=== PATIENT | male | born 1960 | race Caucasian/White ===

== ENCOUNTER 2021-09-16 13:13 | Observation (INO) ==
[2021-09-16] MEDS ORDERED: HYDROmorphone INJ 0.5 MG/0.5 ML SYR IV STA ×2 (14:09→16:04)
[2021-09-16] MEDS ORDERED: ONDANSETRON INJ 2 MG/ML 2 ML VIAL IV STA (14:09)
--- NOTE | 2021-09-16 14:10 | Emergency Department Note ---
History of Present Illness General Chief complaint: Leg Injury/Pain Stated complaint: LEG PAIN Time Seen by Provider: 09/16/21 14:00 Source: patient History of Present Illness Provider complaint: Left-sided back pain Onset (ago): day(s) Location: back Radiation: extremity (Left leg) Pain Consistency: + constant Maximum Pain Intensity: 9 Quality: + sharp Exacerbated By: + movement Associated symptoms: no chest pain, no cough, no fever/chills, no malaise, no nausea/vomiting or no shortness of breath This is a 60-year-old male who presents with left lower back pain rating down to his left leg. It has been going on for 3 days. It started after he fell. He rates it a 9 out of 10 in severity. It is worse when he tries to move. He is not sure if the leg is weak but he is having trouble moving it because of the pain. He denies any numbness to his legs or any saddle anesthesia. He has had no fecal or urinary incontinence. He denies any fever, cough or cold symptoms, chest pain, shortness of breath, abdominal pain, diarrhea or urinary symptoms. He did fall yesterday and was seen here. He did not fall today. Home Medications Medication Instructions Recorded Confirmed Type apixaban 2.5 mg tablet (Eliquis) 2.5 mg PO BID #180 tab 07/28/21 09/16/21 Rx ferrous sulfate 325 mg (65 mg 325 mg PO DAILY #90 tab 07/28/21 09/16/21 Rx iron) tablet (iron) gabapentin 300 mg capsule 300 mg PO DAILY #90 cap 07/28/21 09/16/21 Rx melatonin 3 mg tablet 6 mg PO HS PRN #30 tab 07/28/21 09/16/21 Rx midodrine 5 mg tablet 5 mg PO TID #270 tab 07/28/21 09/16/21 Rx pantoprazole 40 mg tablet,delayed 40 mg PO DAILY #90 tab 07/28/21 09/16/21 Rx release acetaminophen 500 mg tablet 1,000 mg PO DIRECTED PRN 09/07/21 09/16/21 History (Tylenol Extra Strength) ibuprofen 200 mg tablet 400 - 600 mg PO DIRECTED PRN 09/07/21 09/16/21 History triamcinolone acetonide 0.1 % 1 applic TOPICAL DIRECTED PRN 09/07/21 09/16/21 History lotion lidocaine 4 % topical patch 1 patch TOPICAL DAILY #30 ea 09/14/21 09/16/21 Rx (Aspercreme (lidocaine)) oxycodone 5 mg tablet 5 mg PO Q6H PRN #10 tab 09/16/21 Rx Allergies Allergy/AdvReac Type Severity Reaction Status Date / Time No Known Allergies Allergy Verified 09/16/21 17:03 Past Med/Surg History Medical History Afib Anoxic brain damage Cardiac arrest ESRD (end stage renal disease) on dialysis History of substance abuse Iron deficiency anemia Osteoarthritis Primary hypertension Psoriasis Surgical History S/P inguinal hernia repair Family History Brother Stroke Other Hypertension Denies family history of Ovarian cancer Prostate cancer Myocardial infarction Breast cancer Colorectal cancer Social History Smoking Status: Former smoker Tobacco Type: Cigarettes Number of Years Since Quit: 15; Second Hand Exposure: Yes; Hx Alcohol Use: Yes (quit 20 years) Hx Substance Use: Yes Non-Prescribed Medications: Crack / Cocaine and Marijuana Preferred Language: Cambodian marital status: Single current occupational status: disabled Feels Safe at Home: Yes Review of Systems See HPI for pertinent positives & negatives. and A total of 10 systems reviewed and were otherwise negative Physical Exam Vital Signs Vital Signs - 24 hr 09/16/21 13:21 09/16/21 13:29 09/16/21 13:30 Temperature 37 C Temperature Source Oral Pulse Rate 86 80 79 Pulse Rate [Right Finger] Pulse Rate from SpO2 Sensor 85 84 Respiratory Rate 22 18 Blood Pressure 130/87 Blood Pressure [Right Arm] Blood Pressure Mean 101 Blood Pressure Mean [Right Arm] Pulse Oximetry 97 98 97 Oxygen Delivery Method Room Air Sepsis Recent Fever Within 48 Hours No Sepsis New/Unexplained Change in Mental Status No Sepsis Action Taken by Nursing No Action Required 09/16/21 13:52 09/16/21 14:00 09/16/21 14:30 Temperature Temperature Source Pulse Rate 83 Pulse Rate [Right Finger] Pulse Rate from SpO2 Sensor 83 73 Respiratory Rate 24 14 Blood Pressure Blood Pressure [Right Arm] Blood Pressure Mean Blood Pressure Mean [Right Arm] Pulse Oximetry 98 96 92 Oxygen Delivery Method Room Air Sepsis Recent Fever Within 48 Hours Sepsis New/Unexplained Change in Mental Status Sepsis Action Taken by Nursing 09/16/21 15:25 09/16/21 15:26 09/16/21 15:28 Temperature Temperature Source Pulse Rate Pulse Rate [Right Finger] 94 H Pulse Rate from SpO2 Sensor 69 Respiratory Rate 16 Blood Pressure 125/79 Blood Pressure [Right Arm] 125/79 Blood Pressure Mean 94 Blood Pressure Mean [Right Arm] 94 Pulse Oximetry 96 96 92 Oxygen Delivery Method Room Air Sepsis Recent Fever Within 48 Hours Sepsis New/Unexplained Change in Mental Status Sepsis Action Taken by Nursing 09/16/21 15:30 09/16/21 16:27 Temperature Temperature Source Pulse Rate Pulse Rate [Right Finger] 76 Pulse Rate from SpO2 Sensor 67 Respiratory Rate 18 Blood Pressure Blood Pressure [Right Arm] 107/75 Blood Pressure Mean Blood Pressure Mean [Right Arm] 85 Pulse Oximetry 96 92 Oxygen Delivery Method Room Air Sepsis Recent Fever Within 48 Hours Sepsis New/Unexplained Change in Mental Status Sepsis Action Taken by Nursing Constitutional: Vital signs reviewed. Eyes: Pupils are equal round reactive to light. Conjunctiva are noninjected. ENT: Pharynx is clear without erythema or exudate. Mucous membranes are moist. Neck supple without meningeal signs. Respiratory: Clear to auscultation bilaterally. Breath sounds are equal bilaterally. Cardiovascular: Regular rate and rhythm. No rubs or gallops. GI: Soft, nondistended and nontender. Bowel sounds are present. Musculoskeletal: No peripheral edema. No lower extremity tenderness. Integumentary: No cyanosis. or jaundice. Neurological: The patient is awake and alert. Sensation is intact throughout the lower extremities. Motor strength is 5 out of 5 in the right side. It is 4-5 in the left proximal hip but 5 out of 5 in the knee and ankle. Psychiatric: Normal affect. Not anxious appearing. Course Administered Medications Discontinued Medications Hydromorphone HCl (Hydromorphone Inj 0.5 Mg/0.5 Ml Syr) 0.5 mg IV NOW STA Stop: 09/16/21 14:10 Last Admin: 09/16/21 14:19 Dose: 0.5 mg Documented by: [id number] Hydromorphone HCl (Hydromorphone Inj 0.5 Mg/0.5 Ml Syr) 0.25 mg IV NOW STA Stop: 09/16/21 16:05 Last Admin: 09/16/21 16:24 Dose: 0.25 mg Documented by: [id number] Ondansetron HCl (Ondansetron Inj 2 Mg/Ml 2 Ml Vial) 4 mg IV NOW STA Stop: 09/16/21 14:10 Last Admin: 09/16/21 14:19 Dose: 4 mg Documented by: [id number] Medical Decision Making Differential Diagnosis Lumbar radiculopathy, lumbar disc disease, compression fracture, cauda equina syndrome, spinal mass Medical Records Attestation: I reviewed the patient's medical records. I did perform a limited focused review of portions of the patient's old chart on the electronic medical record. The patient was seen here on September 07, and for a fall. He had a CT of the lumbar spine September 13 which showed the following:Degenerative disc and degenerative facet joint disease with bulging annuli present. There is evidence for central canal and bilateral foraminal stenosis at L4-5. Home Medications Current Medication List: was personally reviewed by me Laboratory Data Attestation: I reviewed the patient's lab results. Result diagrams: 09/16/21 13:55 09/16/21 13:55 Lab Results 09/16/21 09/16/21 09/16/21 Range/Units 13:55 13:55 17:00 WBC 9.05 (4.8-10.8) K/uL RBC 3.27 L (4.7-6.1) M/uL Hgb 9.7 L (14.0-18.0) g/dL Hct 30.3 L (42-52) % MCV 92.7 (80-100) fL MCH 29.7 (25-34) pg MCHC 32.0 (32-36) g/dL RDW Std Deviation 58.5 H (36.4-46.3) fL RDW Coeff of Robert 17.0 H (11.5-14.5) % Plt Count 281 (130-400) K/uL MPV 9.3 (7.4-10.4) fL Immature Gran % (Auto) 0.4 % Neut % (Auto) 78.1 % Lymph % (Auto) 10.1 % [place] % (Auto) 9.0 % Eos % (Auto) 2.1 % Baso % (Auto) 0.3 % Neut # (Auto) 7.07 H (1.4-6.5) K/uL Lymph # (Auto) 0.91 L (1.2-3.4) K/uL [place] # (Auto) 0.81 H (0.11-0.59) K/uL Eos # (Auto) 0.19 (0-0.5) K/uL Baso # (Auto) 0.03 (0-0.2) K/uL Immature Gran # (Auto) 0.04 H (0.00-0.02) K/uL Sodium 137 (136-145) mmol/L Potassium 4.4 (3.5-5.1) mmol/L Chloride 102 (98-107) mmol/L Carbon Dioxide 24 (21-32) mmol/L Anion Gap 11 (3-11) BUN 70 H (6-23) mg/dl Creatinine 3.84 H (0.6-1.4) mg/dl Est Cr Clr Drug Dosing 23.1 ml/min Est GFR ( Amer) 18.6 ml/min Est GFR (Non-Af Amer) 16.0 ml/min BUN/Creatinine Ratio 18.2 (10-20) Glucose 100 H (70-99(Fasting)) mg/dl Calcium 8.9 (8.5-10.1) mg/dl Total Bilirubin 0.5 (0.2-1.0) mg/dl AST 12 L (13-39) U/L ALT 10 (7-52) U/L Alkaline Phosphatase 112 H (34-104) U/L Total Protein 6.8 (6.0-8.3) gm/dl Albumin 4.0 (3.4-5.0) gm/dl Globulin 2.8 (2.5-4.0) gm/dl Albumin/Globulin Ratio 1.4 (0.9-2) Lipase 10 L (11-82) U/L Urine Color Yellow Urine Appearance Clear (Clear) Urine pH 7.5 (4.5-7.5) Ur Specific [place] 1.008 (1.000-1.030) Urine Protein Trace H (Negative) Urine Glucose (UA) Negative (Negative) Urine Ketones Negative (Negative) Urine Blood Trace H (Negative) Urine Nitrite Positive A (Negative) Urine Bilirubin Negative (Negative) Urine Urobilinogen Negative (Negative) Ur Leukocyte Esterase 2+ H (Negative) Urine WBC (Auto) >30 H (0-5) /hpf Urine RBC (Auto) 0-4 (0-4) /hpf U Hyaline Cast (Auto) 1-5 (0-5) /lpf U Epithel Cells (Auto) 0-5 (0-5) /lpf Urine Bacteria (Auto) 2+ H (Negative) Imaging Data Radiologist's Impression: Lumbar Spine MRI 09/16/21 14:09 MR lumbar spine wo con CLINICAL HISTORY: 60 years-old Male with pain with left leg weak eval for spinal cord injur. Acute low back pain with bilateral lower extremity weakness COMPARISON: CT lumbar spine 09/13/2021 TECHNIQUE: Multiplanar, multi sequence MRI of the lumbar spine was performed without intravenous contrast. FINDINGS: The lieutenant fire fighter localizer images demonstrate no gross extraspinal abnormality. Urinary bladder trabeculation with small diverticula suggestive of chronic bladder outlet obstruction. The study is motion degraded. There is no abdominal aortic aneurysm or lymphadenopathy identified on this study. The conus medullaris terminates at the T12-L1 level. Signal within the imaged thoracic spinal cord and cauda equina is within normal limits. No acute fracture, subluxation, or endplate erosion. Mild Modic type I endplate degeneration at L4-L5. T12-L1: Mild spondylitic spurring and facet arthrosis. No central canal or neural foraminal stenosis. L1-L2: Mild spondylitic spurring and facet arthrosis. No central canal or neural foraminal stenosis. L2-L3: Mild spondylitic spurring and facet arthrosis. No central canal or neural foraminal stenosis. L3-L4: Mild spondylitic spurring and facet arthrosis with tiny posterior annular disc bulge and ligamentum flavum thickening. Trace facet effusions. Flattening of the ventral thecal sac without significant central canal stenosis. Mild to moderate right with mild left neural foraminal narrowing. L4-L5: Moderate to severe intervertebral disc space narrowing with spondylitic spurring and circumferential disc osteophyte complex. Ligamentum flavum thickening with mild to moderate facet arthrosis. Flattening of the ventral thecal sac without significant central canal stenosis. Mild to moderate narrowing of the right lateral recess. Mild to moderate bilateral foraminal stenosis. L5-S1: Mild to moderate facet arthrosis with mild spondylitic spurring and tiny posterior annular disc bulge. Trace facet effusions. The central canal is patent. Mild bilateral neural foraminal narrowing. IMPRESSION: 1. Motion degraded exam. No acute fracture or subluxation. 2. Moderate to severe intervertebral disc space narrowing at L4-L5 with Modic type I endplate degeneration. There is mild to moderate bilateral foraminal stenosis at this interspace. 3. Additional neural foraminal narrowing L3-L4 and L5-S1 as above. 4. No significant central canal stenosis. ACT 112: Negative or not required by law. The above report was generated using voice recognition software. It may contain grammatical, syntax or spelling errors. Electronically signed by: Florencio Guzman M.D. 09/16/2021 3:54 PM Prescription Drug Monitoring [place] Drug Monitoring Program reviewed and no issues identified MDM Narrative I did evaluate the patient as noted above. He is presenting with worsening back pain over the past 2 days. He was seen here previously for similar back pain and diagnosed with lumbar radiculopathy. He does complain of weakness to the left leg although it is difficult to ascertain whether this is secondary to pain. IV access was established. I did treat the patient with Dilaudid and Zofran IV. I did order a urine analysis. I did order and review the patient's blood work as noted in the electronic medical record. CMP demonstrates a creatinine at 3.84 but he is a dialysis patient. He states he gets dialysis every other day. CBC demonstrates a hemoglobin 9.7 with no elevation of his white blood cell count. I did order an MRI of the lumbar spine. I did review the images myself as well as the radiology report as described above. He has moderate to severe intervertebral disc disease at L4 and L5. He also has neuroforaminal narrowing at L3 and L4 as well as L5-S1. I did reassess the patient. He is still having pain. Is given that additional Dilaudid IV. On reassessment he felt better and stated that he felt well enough to go home. I did get his discharge ready and wrote him a prescription. He attempted to get up and had severe pain. He did wish to be hospitalized at this point. I did discuss the case with the hospitalist and case consultant. I did send a JOSH toney Impression & Plan Lumbar radiculopathy, End stage renal disease on dialysis, Chronic anemia Discharge Plan Visit Data Chief Complaint: Leg Injury/Pain Stated Complaint: LEG PAIN ED Provider: Romario Toledo Discharge Problem: Lumbar radiculopathy, End stage renal disease on dialysis, Chronic anemia Patient Disposition: Being Evaluated by Hospitalist Condition: Good Discharge Instructions Jerrod/Other Patient Handouts: Understanding Lumbar Radiculopathy Activity Restrictions/Additional Instructions: You have been examined and treated today on an emergency basis only. This is not a substitute for, or an effort to provide, complete comprehensive medical care. It is impossible to recognize and treat all injuries or illnesses in a single emergency department visit. It is therefore important that you follow up closely with your physician. Call as soon as possible for an appointment. Return for worsening symptoms or if you develop fever, vomiting, abdominal pain, loss of control of your bowel or bladder, numbness or weakness to your legs, numbness to your private area, difficulty urinating, or any other concerning symptoms. Forms Stand Alone Forms: [facility], [facility], [facility], Important Visit Information Prescriptions Prescriptions: New oxycodone 5 mg tablet 5 mg PO Q6H PRN (Reason: pain) Qty: 10 RF: 0 No Action Eliquis 2.5 mg tablet 2.5 mg PO BID Qty: 180 RF: 3 ferrous sulfate [iron] 325 mg (65 mg iron) tablet 325 mg PO DAILY Qty: 90 RF: 3 gabapentin 300 mg capsule 300 mg PO DAILY Qty: 90 RF: 3 melatonin 3 mg tablet 6 mg PO HS PRN (Reason: sleep) Qty: 30 RF: 3 midodrine 5 mg tablet 5 mg PO TID Qty: 270 RF: 3 pantoprazole 40 mg tablet,delayed release (DR/EC) 40 mg PO DAILY Qty: 90 RF: 3 ibuprofen 200 mg Tablet 400 - 600 mg PO DIRECTED PRN (Reason: PAIN/FEVER) RF: 0 triamcinolone acetonide 0.1 % lotion 1 applic TOPICAL DIRECTED PRN (Reason: Skin Irritation) RF: 0 acetaminophen [Tylenol Extra Strength] 500 mg tablet 1,000 mg PO DIRECTED PRN (Reason: PAIN/FEVER) RF: 0 lidocaine [Aspercreme (lidocaine HCl)] 4 % adhesive patch,medicated 1 patch topical DAILY Qty: 30 RF: 0 Referrals Referrals: Analia Muniz MD [Primary Care Provider] -
[2021-09-16 14:20] LABS: Basophils # (auto) 0.03 K/uL (0-0.2); Basophils % (auto) 0.3 %; Eosinophils # (auto) 0.19 K/uL (0-0.5); Eosinophils % (auto) 2.1 %; Hematocrit (blood only) 30.3 % (42-52); Hemoglobin 9.7 g/dL (14.0-18.0); Immature Granulocytes # (auto) 0.04 K/uL (0.00-0.02); Immature Granulocytes % (auto) 0.4 %; Lymphocytes # (auto) 0.91 K/uL (1.2-3.4); Lymphocytes % (auto) 10.1 %; Mean Corpuscular Hemoglobin 29.7 pg (25-34); Mean Corpuscular Volume 92.7 fL (80-100); Mean Platelet Volume 9.3 fL (7.4-10.4); Monocytes # (auto) 0.81 K/uL (0.11-0.59); Neutrophils # (auto) 7.07 K/uL (1.4-6.5); Neutrophils % (auto) 78.1 %; Platelet Count 281 K/uL (130-400); RDW Standard Deviation 58.5 fL (36.4-46.3); Red Blood Count 3.27 M/uL (4.7-6.1); White Blood Count 9.05 K/uL (4.8-10.8)
[2021-09-16 14:42] LABS: Albumin Globulin Ratio 1.4 (0.9-2); BUN Creatinine Ratio 18.2 (10-20); Bilirubin,Total 0.5 mg/dl (0.2-1.0); Calcium 8.9 mg/dl (8.5-10.1); Creatinine Clr Calc Pharmacy 23.1 ml/min; Est GFR (African American) 18.6 ml/min; Globulin 2.8 gm/dl (2.5-4.0); Potassium 4.4 mmol/L (3.5-5.1); Total Protein 6.8 gm/dl (6.0-8.3)
--- NOTE | 2021-09-16 15:56 | Magnetic Resonance Report ---
MR lumbar spine wo con CLINICAL HISTORY: 60 years-old Male with pain with left leg weak eval for spinal cord injur. Acute l ow back pain with bilateral lower extremity weakness COMPARISON: CT lumbar spine 09/13/2021 TECHNIQUE: Multiplanar, multi sequence MRI of the lumbar spine was performed without intravenous cont rast. FINDINGS: The metallurgical engineering teacher localizer images demonstrate no gross extraspinal abnormality. Urinary bladder trabeculatio n with small diverticula suggestive of chronic bladder outlet obstruction. The study is motion degrad ed. There is no abdominal aortic aneurysm or lymphadenopathy identified on this study. The conus medu llaris terminates at the T12-L1 level. Signal within the imaged thoracic spinal cord and cauda equina is within normal limits. No acute fracture, subluxation, or endplate erosion. Mild Modic type I endp late degeneration at L4-L5. T12-L1: Mild spondylitic spurring and facet arthrosis. No central canal or neural foraminal stenosis . L1-L2: Mild spondylitic spurring and facet arthrosis. No central canal or neural foraminal stenosis. L2-L3: Mild spondylitic spurring and facet arthrosis. No central canal or neural foraminal stenosis. L3-L4: Mild spondylitic spurring and facet arthrosis with tiny posterior annular disc bulge and liga mentum flavum thickening. Trace facet effusions. Flattening of the ventral thecal sac without signifi cant central canal stenosis. Mild to moderate right with mild left neural foraminal narrowing. L4-L5: Moderate to severe intervertebral disc space narrowing with spondylitic spurring and circumfe rential disc osteophyte complex. Ligamentum flavum thickening with mild to moderate facet arthrosis. Flattening of the ventral thecal sac without significant central canal stenosis. Mild to moderate rose rowing of the right lateral recess. Mild to moderate bilateral foraminal stenosis. L5-S1: Mild to moderate facet arthrosis with mild spondylitic spurring and tiny posterior annular di sc bulge. Trace facet effusions. The central canal is patent. Mild bilateral neural foraminal narrowi ng. IMPRESSION: 1. Motion degraded exam. No acute fracture or subluxation. 2. Moderate to severe intervertebral disc space narrowing at L4-L5 with Modic type I endplate degener ation. There is mild to moderate bilateral foraminal stenosis at this interspace. 3. Additional neural foraminal narrowing L3-L4 and L5-S1 as above. 4. No significant central canal stenosis. ACT 112: Negative or not required by law. The above report was generated using voice recognition software. It may contain grammatical, syntax o r spelling errors. Electronically signed by: Florencio Guzman M.D. 09/16/2021 3:54 PM
[2021-09-16 17:21] LABS: Appearance Urine Clear (Clear); Bacteria Urine Automated 2+ (Negative); Bilirubin Urine Negative (Negative); Blood Urine Trace (Negative); Color Urine Yellow; Epithelial Cell Urine Auto 0-5 /lpf (0-5); Glucose Urine UA Negative (Negative); Ketones Urine Negative (Negative); Leukocyte Esterase Urine 2+ (Negative); Nitrite Urine Positive (Negative); RBC Urine Automated 0-4 /hpf (0-4); Specific Gravity Urine 1.008 (1.000-1.030); Urobilinogen Urine Negative (Negative); WBC Urine Automated >30 /hpf (0-5); pH Urine 7.5 (4.5-7.5)
[2021-09-16 17:27] LABS: Protein Urine Trace (Negative)
--- NOTE | 2021-09-16 17:37 | History & Physical Report ---
Date of Service September 16, 2021 Assessment & Plan (1) Low back pain radiating to left leg: Plan: Acute on chronic lower back pain. MRI lumbar spine showed "Moderate to severe intervertebral disc space narrowing at L4-L5" but no central canal stenosis. - Pain management with scheduled acetaminophen, lidocaine patch, heat pad, and ketorolac PRN - Increase home gabapentin to BID (no higher due to renal function) - PT/OT - Consider Pain Management consult if no improvement - Given hx of abuse, would avoid opioids. I explicitly told the patient this during my interview. (2) End stage renal disease on dialysis: Plan: Due to ROME during his cardiac arrest. He is unclear who is usual signals collector/analyst is. Reports he did miss yesterday's HD session due to pain. No acute dialysis needs at this time. - Consult nephrology (3) Afib: Plan: In setting of his cardiac arrest. PCP notes that he has not had any more known episodes. - Continue home apixaban - Not on any rate control at present (4) Psoriasis: Plan: Notable patches on extensor surfaces. Reports he does not presently see any yarn twister for this. - Make triamcinolone cream PRN to standing BID for now - Monitor (5) Polysubstance abuse: Plan: Cardiac arrest in 07/2020 in the setting of a duodenal ulcer while under influence of cocaine & opioids. - Avoid narcotic medications (6) DVT prophylaxis: Plan: On Eliquis for afib History of Present Illness Primary Care Provider: Analia Muniz MD 60yo M w/ hx of cardiac arrest after hemorrhagic shock who presents with intractable back pain. The patient just arrived at [facility] for some physical therapy as he had been having trouble at home. He reports he was walking around the facility without any problem, doing 1,000 steps at a time. However, he had two falls over a door sill and then fell out of bed 2 times in the last 3 days. He now has lower back pain that radiates down his left leg. He feels the leg is weak and he cannot support it. In the ER, the pain was recalcitrant to multiple IV doses of pain medication, and the patient felt he needed to come into the hospital for further pain management. Allergies Allergy/AdvReac Type Severity Reaction Status Date / Time No Known Allergies Allergy Verified 09/16/21 17:03 Home Medications Medication Instructions Recorded Confirmed Type apixaban 2.5 mg tablet (Eliquis) 2.5 mg PO BID #180 tab 07/28/21 09/16/21 Rx ferrous sulfate 325 mg (65 mg 325 mg PO DAILY #90 tab 07/28/21 09/16/21 Rx iron) tablet (iron) gabapentin 300 mg capsule 300 mg PO DAILY #90 cap 07/28/21 09/16/21 Rx melatonin 3 mg tablet 6 mg PO HS PRN #30 tab 07/28/21 09/16/21 Rx midodrine 5 mg tablet 5 mg PO TID #270 tab 07/28/21 09/16/21 Rx pantoprazole 40 mg tablet,delayed 40 mg PO DAILY #90 tab 07/28/21 09/16/21 Rx release acetaminophen 500 mg tablet 1,000 mg PO DIRECTED PRN 09/07/21 09/16/21 History (Tylenol Extra Strength) ibuprofen 200 mg tablet 400 - 600 mg PO DIRECTED PRN 09/07/21 09/16/21 History triamcinolone acetonide 0.1 % 1 applic TOPICAL DIRECTED PRN 09/07/21 09/16/21 History lotion lidocaine 4 % topical patch 1 patch TOPICAL DAILY #30 ea 09/14/21 09/16/21 Rx (Aspercreme (lidocaine)) oxycodone 5 mg tablet 5 mg PO Q6H PRN #10 tab 09/16/21 Rx Past Med/Surg History Medical History Afib Anoxic brain damage Cardiac arrest ESRD (end stage renal disease) on dialysis History of substance abuse Iron deficiency anemia Osteoarthritis Primary hypertension Psoriasis Surgical History S/P inguinal hernia repair Family History Brother Stroke Other Hypertension Denies family history of Ovarian cancer Prostate cancer Myocardial infarction Breast cancer Colorectal cancer Social History Smoking Status: Former smoker Tobacco Type: Cigarettes Number of Years Since Quit: 15; Second Hand Exposure: Yes; Hx Alcohol Use: Yes (quit 20 years) Hx Substance Use: Yes Non-Prescribed Medications: Crack / Cocaine and Marijuana Preferred Language: Armenian marital status: Single current occupational status: disabled Feels Safe at Home: Yes Review of Systems Review of Systems: All systems reviewed & are unremarkable except as noted in HPI & below Physical Exam Constitutional: WD/WN, vitals as above Eyes: EOM intact bilaterally; no conjunctival abnormality ENMT: external ear and nose normal, oropharynx normal Neck: trachea midline, no thyromegaly normal visual inspection Respiratory: normal respiratory effort, lungs clear to auscultation no respiratory distress Cardiovascular: RRR, no murmur, no edema Gastrointestinal (Abdomen): Inspection/Auscultation: abdomen normal to inspection; abdomen not distended Musculoskeletal: Spine: + lumbar spinal tenderness (Midline, mild, partially distractable.) Skin: no rashes, warm and dry Neurologic: moves all extremities and awake Psychiatric: Orientation: alert, oriented to person and cooperative Results & Data Results & Data ([facility]) Vital Signs (Past 12 Hours) Vital Signs Temp Pulse Pulse Resp BP BP Pulse Ox 09/16/21 16:27 76 18 107/75 92 09/16/21 15:30 96 09/16/21 15:28 94 H 16 125/79 92 09/16/21 15:26 125/79 96 09/16/21 15:25 96 09/16/21 14:30 14 92 09/16/21 14:00 83 24 96 09/16/21 13:52 98 09/16/21 13:30 79 97 09/16/21 13:29 37 C 80 18 130/87 98 09/16/21 13:21 86 22 97 Code Status & VTE Plan VTE Prophylaxis Plan VTE Prophylaxis will be ordered: Yes PG Care Time/CCT Total # of Minutes Spent Total Time Spent with Patient: Total time spent is greater than 50% in coordination of care (as documented) at patient's floor/unit and/or counseling patient: Coding Level of Care Code INT OBSERVATION CARE 70M LVL 3 Diagnoses Low back pain radiating to left leg M54.50; M79.605 End stage renal disease on dialysis N18.6; Z99.2 Afib I48.91 Psoriasis L40.9 Polysubstance abuse F19.10 DVT prophylaxis Z29.9
[2021-09-16] MEDS ORDERED: MELATONIN 3 MG TAB PO PRN (20:08)
[2021-09-16] MEDS: ACETAMINOPHEN 500 MG TAB PO SCH (20:38)
[2021-09-16] MEDS: APIXABAN 2.5 MG TAB PO SCH (20:38)
[2021-09-16] MEDS: LIDOCAINE 5% 1 PATCH TD SCH (20:40)
[2021-09-16] MEDS: TRIAMCINOLONE ACET 0.1% CR 80 GM TUBE TOP SCH (21:34)
[2021-09-17] MEDS: KETOROLAC TROMETHAMINE 15 MG/ML VIAL IV PRN ×3 (04:39→16:55)
[2021-09-17] MEDS: MIDODRINE HCL 2.5 MG TAB PO SCH ×3 (06:06→17:01)
[2021-09-17 07:12] LABS: Hematocrit (blood only) 32.3 % (42-52); Hemoglobin 10.2 g/dL (14.0-18.0); Mean Corpuscular Hemoglobin 29.7 pg (25-34); Mean Corpuscular Hgb Conc 31.6 g/dL (32-36); Mean Corpuscular Volume 94.2 fL (80-100); Mean Platelet Volume 9.2 fL (7.4-10.4); Platelet Count 244 K/uL (130-400); RDW Coefficient of Variation 17.1 % (11.5-14.5); RDW Standard Deviation 58.8 fL (36.4-46.3); Red Blood Count 3.43 M/uL (4.7-6.1); White Blood Count 7.72 K/uL (4.8-10.8)
[2021-09-17 07:43] LABS: Creatinine Clr Calc Pharmacy 22.8 ml/min; Est GFR (African American) 18.3 ml/min; Est GFR (Non-African American) 15.8 ml/min; Magnesium 1.5 mg/dl (1.7-2.4); Potassium 4.6 mmol/L (3.5-5.1)
[2021-09-17] MEDS: ACETAMINOPHEN 500 MG TAB PO SCH ×3 (08:05→21:11)
[2021-09-17] MEDS: GABAPENTIN 300 MG CAP PO SCH (08:06)
[2021-09-17] MEDS: PANTOprazole 40 MG TAB PO SCH (08:07)
[2021-09-17] MEDS: APIXABAN 2.5 MG TAB PO SCH ×2 (08:07→21:12)
[2021-09-17] MEDS: TRIAMCINOLONE ACET 0.1% CR 80 GM TUBE TOP SCH ×2 (08:08→21:11)
--- NOTE | 2021-09-17 10:30 | Nephrology Consultation ---
Date of Consultation September 17, 2021 Assessment & Plan (1) End stage renal disease on dialysis: (2) Chronic anemia: (3) Lumbar radiculopathy: (4) Primary hypertension: ESRD on hemodialysis since July 2020, on Saturday, Saturday, Saturday at [facility]. Admitted to the hospital with lower back pain and frequent falls. Missed dialysis on Saturday due to back pain and last dialysis was last Saturday. However, he continues to make urine and has been having decent urine output. Blood pressure, volume status acceptable, no respiratory distress. Electrolyte acceptable. -- No indication for dialysis today, will evaluate for any urgent need for dialysis tomorrow morning. If otherwise clinically stable and plan to discharge him tomorrow morning, he can have dialysis in the afternoon at outpatient dialysis unit. However, if his staying, will consider dialysis inpatient at tomorrow afternoon or Saturday depending on availability of dialysis shifts and nursing staff. -- will give Epogen with dialysis tomorrow. -- waiting on pain management evaluation, may need orthopedic evaluation for moderate to severe L4- L5 narrowing. Will follow Thank you for allowing me to participate in your patient's care. It was a pleasure to see Regan. History of Present Illness Reason for Consultation: End-stage renal disease on hemodialysis admitted with back pain and frequent falls. Attending Physician: Moris Treviño MD History of Present Illness Mr. Regan Schneider is a 60-year-old male with ESRD on hemodialysis admitted to hospital with recent frequent falls, back pain. Nephrology consult requested for management of hemodialysis while inpatient. EMR records reviewed in detail during patient's visit. Regan Presented to ER yesterday with left lower back pain radiating down to his left leg which has been ongoing for last few days. He visited year twice recently on 09/07/2021 and 09/13/2021 with leg pain and frequent falls over last few days. No numbness to his legs or any saddle anesthesia.No fecal or urinary incontinence, fever, cough or cold symptoms, chest pain, shortness of breath, abdominal pain, diarrhea or urinary symptoms.Lumbar spine MRI on admission showed moderate to severe intervertebral disc space narrowing at L4-L5 and mild to moderate bilateral foraminal stenosis. pain need this being managed conservatively and waiting for pain management evaluation. ESRD on hemodialysis Saturday, Saturday, Saturday at [facility]. His last dialysis was last Saturday and he missed dialysis Saturday because of fall and back pain. He was started on dialysis in July 2020 after he had Spring secondary to dense ATN in the setting of hemorrhagic shock. On 08/12/20 He was admitted to an outside facility with chest pain and change in mental status. He was found to be in AFib with RVR. Drug screen was positive for cocaine and opioid. Hospitalization was complicated by bleeding duodenal ulcer leading to hemolytic shock and eventually developing AK I with non recovery requiring hemodialysis. Hospital course was also complicated by anoxic brain injury, respiratory failure requiring intubation. After prolonged hospitalization he was sent to long-term acute care facility and eventually had tracheostomy placed and subsequently tracheostomy was reversed as he improved. Currently he is at [facility]. Recently he was also noted to have swelling of left lower extremity mainly in cuff area compared to right lower extremity associated with pain but no redness or erythema. Venous Doppler of lower extremity was ordered on 08/14/21 but unclear whether it was done. He has been on apixaban 2.5 mg twice a day. Allergies Allergy/AdvReac Type Severity Reaction Status Date / Time No Known Allergies Allergy Verified 09/16/21 17:03 Home Medications Medication Instructions Recorded Confirmed Type apixaban 2.5 mg tablet (Eliquis) 2.5 mg PO BID #180 tab 07/28/21 09/16/21 Rx ferrous sulfate 325 mg (65 mg 325 mg PO DAILY #90 tab 07/28/21 09/16/21 Rx iron) tablet (iron) gabapentin 300 mg capsule 300 mg PO DAILY #90 cap 07/28/21 09/16/21 Rx melatonin 3 mg tablet 6 mg PO HS PRN #30 tab 07/28/21 09/16/21 Rx midodrine 5 mg tablet 5 mg PO TID #270 tab 07/28/21 09/16/21 Rx pantoprazole 40 mg tablet,delayed 40 mg PO DAILY #90 tab 07/28/21 09/16/21 Rx release acetaminophen 500 mg tablet 1,000 mg PO DIRECTED PRN 09/07/21 09/16/21 History (Tylenol Extra Strength) ibuprofen 200 mg tablet 400 - 600 mg PO DIRECTED PRN 09/07/21 09/16/21 Histor y triamcinolone acetonide 0.1 % 1 applic TOPICAL DIRECTED PRN 09/07/21 09/16/21 History lotion lidocaine 4 % topical patch 1 patch TOPICAL DAILY #30 ea 09/14/21 09/16/21 Rx (Aspercreme (lidocaine)) oxycodone 5 mg tablet 5 mg PO Q6H PRN #10 tab 09/16/21 Rx Patient History Medical History Afib Anoxic brain damage Cardiac arrest ESRD (end stage renal disease) on dialysis History of substance abuse Iron deficiency anemia Osteoarthritis Primary hypertension Psoriasis Surgical History S/P inguinal hernia repair Family History Brother Stroke Other Hypertension Denies family history of Ovarian cancer Prostate cancer Myocardial infarction Breast cancer Colorectal cancer Social History Smoking Status: Former smoker Tobacco Type: Cigarettes Number of Years Since Quit: 15; Second Hand Exposure: Yes; Hx Alcohol Use: No Hx Substance Use: Yes Non-Prescribed Medications: Crack / Cocaine and Marijuana Last Used Substance Other:: 15 years ago Preferred Language: Spanish Communication Ability: Effective Wreath Machine Tender Required: No marital status: Single Current Living Situation: Residential current occupational status: disabled Feels Safe at Home: Yes Assistive Devices: Walker and Wheelchair Review of Systems Review of Systems: Detail ROS was otherwise unremarkable. Physical Exam Constitutional: WD/WN, vitals as above no acute distress Eyes: + anicteric sclerae Neck: normal visual inspection Respiratory: no respiratory distress and no cough Auscultation: lungs clear to auscultation bilaterally Cardiovascular: Rate/Rhythm: regular rate and regular rhythm Extremities: + calf tenderness (left calf tender, bigger than right.); no edema Gastrointestinal (Abdomen): Inspection/Auscultation: abdomen normal to inspection and normal bowel sounds Percussion/Palpation: abdomen soft; abdomen nontender Musculoskeletal: Extremities: extremities normal to inspection Skin: no rashes Neurologic: no focal motor deficits Psychiatric: Orientation: alert and oriented x 3 Affect: euthymic affect Results & Data ([facility]) Vital Signs (Past 12 Hours) Vital Signs Temp Pulse Resp BP Pulse Ox 09/17/21 06:03 36.6 C 65 18 153/73 H 95 PG Care Time/CCT Total # of Minutes Spent Total Time Spent with Patient: Total time spent is greater than 50% in coordination of care (as documented) at patient's floor/unit and/or counseling patient: Coding Level of Care Code 05422 Initial Inpt Care Lvl 3 Diagnoses End stage renal disease on dialysis N18.6; Z99.2 Chronic anemia D64.9 Lumbar radiculopathy M54.16 Primary hypertension I10
--- NOTE | 2021-09-17 11:34 | Hospitalist Progress Note ---
Date of Service September 17, 2021 Assessment & Plan (1) Low back pain radiating to left leg: Plan: Acute on chronic lower back pain. MRI lumbar spine showed "Moderate to severe intervertebral disc space narrowing at L4-L5" but no central canal stenosis. - Pain management with scheduled acetaminophen, lidocaine patch, heat pad, and ketorolac PRN - Continue home gabapentin daily (no higher due to ESRD) - PT/OT - Consult Pain Management - Given hx of abuse, would avoid opioids. I explicitly told the patient this during my interview. (2) End stage renal disease on dialysis: Plan: Due to ROME during his cardiac arrest. He is unclear who is usual supervisor of officials is. Reports he did miss yesterday's HD session due to pain. No acute dialysis needs at this time. - Consulted nephrology - Discussed today. No acute HD needs. (3) Afib: Plan: In setting of his cardiac arrest. PCP notes that he has not had any more known episodes. - Continue home apixaban - Not on any rate control at present (4) Psoriasis: Plan: Notable patches on extensor surfaces. Reports he does not presently see any celery packer for this. - Make triamcinolone cream PRN to standing BID for now - Monitor (5) Polysubstance abuse: Plan: Cardiac arrest in 07/2020 in the setting of a duodenal ulcer while under influence of cocaine & opioids. - Avoid narcotic medications (6) DVT prophylaxis: Plan: On Eliquis for afib Admission and Anticipated Discharge Date Admission Date: September 16, 2021 Subjective Sleeping comfortably when I see him initially. He wakes up easily and evinces no non-verbal indications of pain. We chat for several minutes. He reports he slept well. When I ask him about pain, he grimaces, sits up in bed, and reports severe pain in his lower back. Reports no fevers/chills, chest pain, shortness of breath, abdominal pain, nausea, or vomiting. Physical Exam Constitutional: WD/WN, vitals as above Eyes: EOM intact bilaterally; no conjunctival abnormality ENMT: external ear and nose normal, oropharynx normal Neck: trachea midline, no thyromegaly normal visual inspection Respiratory: normal respiratory effort, lungs clear to auscultation no respiratory distress Cardiovascular: RRR, no murmur, no edema Gastrointestinal (Abdomen): Inspection/Auscultation: abdomen normal to inspection; abdomen not distended Musculoskeletal: Spine: + lumbar spinal tenderness (Midline, mild, partially distractable.) Skin: no rashes, warm and dry Neurologic: moves all extremities and awake Psychiatric: Orientation: alert, oriented to person and cooperative Results & Data Results & Data ([facility]) Vital Signs (Past 12 Hours) Vital Signs Temp Pulse Resp BP BP Pulse Ox 09/17/21 11:00 70 16 137/87 98 09/17/21 06:03 36.6 C 65 18 153/73 H 95 PG Care Time/CCT Total # of Minutes Spent Total Time Spent with Patient: Total time spent is greater than 50% in coordination of care (as documented) at patient's floor/unit and/or counseling patient: Coding Level of Care Code 82538 Subseq Hosp Care Lvl 2 Diagnoses Low back pain radiating to left leg M54.50; M79.605 End stage renal disease on dialysis N18.6; Z99.2 Afib I48.91 Psoriasis L40.9 Polysubstance abuse F19.10 DVT prophylaxis Z29.9
[2021-09-17] MEDS: LIDOCAINE 5% 1 PATCH TD SCH (21:12)
[2021-09-17] MEDS: FAMOTIDINE 20 MG in SYRINGE 3 ML IV SCH (21:19)
[2021-09-18] MEDS: KETOROLAC TROMETHAMINE 15 MG/ML VIAL IV PRN ×2 (04:47→13:53)
[2021-09-18] MEDS: MIDODRINE HCL 2.5 MG TAB PO SCH ×2 (06:24→12:58)
[2021-09-18] MEDS: APIXABAN 2.5 MG TAB PO SCH (07:28)
[2021-09-18] MEDS: FAMOTIDINE 20 MG in SYRINGE 3 ML IV SCH (07:28)
[2021-09-18] MEDS: TRIAMCINOLONE ACET 0.1% CR 80 GM TUBE TOP SCH (07:29)
[2021-09-18] MEDS: GABAPENTIN 300 MG CAP PO SCH (07:29)
[2021-09-18] MEDS: ACETAMINOPHEN 500 MG TAB PO SCH ×2 (07:29→12:58)
[2021-09-18] MEDS: PANTOprazole 40 MG TAB PO SCH (07:29)
--- NOTE | 2021-09-18 08:59 | Pain Management Consultation ---
Date of Consultation September 18, 2021 Assessment & Plan (1) Low back pain radiating to left leg: (2) Lumbar foraminal stenosis: (3) Polyarthropathy: (4) ESRD (end stage renal disease) on dialysis: (5) Polysubstance abuse: 1. Patient with acute on chronic low back pain and left lower extremity pain in nondermatomal pattern with MRI suggesting lumbar spondylosis with some neural foraminal narrowing-symptomatic complaints did not definitively correlate with MRI findings. He is a poor candidate for interventional treatment due to his ESRD on hemodialysis. 2. Consider Medrol Dosepak if no contraindication 3. Consider dose titration of gabapentin should he resume hemodialysis with improved creatinine/GFR 4. Would not recommend opiate therapy given his history of polysubstance abuse 5. Continue with acetaminophen, Lidoderm patch and ketorolac without change in recommendation 6. Consider PT evaluation and treatment Thank you for allowing us to participate in the care of Mr. Schneider History of Present Illness Reason for Consultation: Acute on chronic low back pain and left lower extremity pain/paresthesia Requesting Physician: Moris Treviño MD Attending Physician: Moris Treviño MD History of Present Illness Mr. Schneider is a 60-year-old white male who was admitted due to acute on chronic low back and left lower extremity radicular pain with paresthesia. The patient reported a fall onto his back 3 weeks ago which contributed to increased complaints of pain. Patient reported that he tripped going out a door and fell onto his back. Patient is describing aching pain in the axial lumbosacral spine left greater than right-sided and pain/paresthesia traveling to the left foot in a nondermatomal pattern. He reports mild discomfort in the right lower extremity which again is nondermatomal in pattern. He further describes pain ar ound the knee and left ankle joint. He reports his pain is minimal while lying supine at a 0-2/10. His pain can escalate to an 8-10/10 with movement. Patient denies weaknesses in the lower extremity or foot drop. He denies bowel or bladder incontinence or saddle anesthesias. Patient reports that his current medications are minimally helpful at diminishing his pain. Patient has history of end-stage renal disease on dialysis but reportedly missed dialysis twice in the past 1 week. Patient does have history of polysubstance abuse but he denies any recent use of illicit drugs. Patient has no further constitutional complaints. Plan of care discussed with Dr. Ramírez. Pain Assessment Full Body Front + Back: 1. Axial lumbosacral spine 2. Left lower extremity pain and paresthesia-nondermatomal with complaints of knee and ankle pain 3. Minimal right lower extremity pain-nondermatomal Allergies Allergy/AdvReac Type Severity Reaction Status Date / Time No Known Allergies Allergy Verified 09/16/21 17:03 Home Medications Medication Instructions Recorded Confirmed Type apixaban 2.5 mg tablet (Eliquis) 2.5 mg PO BID #180 tab 07/28/21 09/16/21 Rx ferrous sulfate 325 mg (65 mg 325 mg PO DAILY #90 tab 07/28/21 09/16/21 Rx iron) tablet (iron) gabapentin 300 mg capsule 300 mg PO DAILY #90 cap 07/28/21 09/16/21 Rx melatonin 3 mg tablet 6 mg PO HS PRN #30 tab 07/28/21 09/16/21 Rx midodrine 5 mg tablet 5 mg PO TID #270 tab 07/28/21 09/16/21 Rx pantoprazole 40 mg tablet,delayed 40 mg PO DAILY #90 tab 07/28/21 09/16/21 Rx release acetaminophen 500 mg tablet 1,000 mg PO DIRECTED PRN 09/07/21 09/16/21 History (Tylenol Extra Strength) ibuprofen 200 mg tablet 400 - 600 mg PO DIRECTED PRN 09/07/21 09/16/21 History triamcinolone acetonide 0.1 % 1 applic TOPICAL DIRECTED PRN 09/07/21 09/16/21 History lotion lidocaine 4 % topical patch 1 patch TOPICAL DAILY #30 ea 09/14/21 09/16/21 Rx (Aspercreme (lidocaine)) oxycodone 5 mg tablet 5 mg PO Q6H PRN #10 tab 09/16/21 Rx Patient History Medical History Afib Anoxic brain damage Cardiac arrest ESRD (end stage renal disease) on dialysis History of substance abuse Iron deficiency anemia Osteoarthritis Primary hypertension Psoriasis Surgical History S/P inguinal hernia repair Family History Brother Stroke Other Hypertension Denies family history of Ovarian cancer Prostate cancer Myocardial infarction Breast cancer Colorectal cancer Social History Smoking Status: Former smoker Tobacco Type: Cigarettes Smoking End Date: 15 years ago; Number of Years Since Quit: 15; Second Hand Exposure: Yes; Hx Alcohol Use: No Hx Substance Use: Yes Non-Prescribed Medications: Crack / Cocaine and Marijuana Last Used Substance Other:: 15 years ago Preferred Language: Icelandic Communication Ability: Effective Hand Sign Writer Required: No marital status: Single Current Living Situation: Prison current occupational status: disabled Other Information That Helps Us Care for You: No Feels Safe at Home: Yes Safety Concerns: Feels Safe At This Time Assistive Devices: Walker and Wheelchair Physical Exam Physical Exam: General: Patient lying quietly in exam room in no acute distress. Speech and thought process appropriate. Mood and affect appropriate. Cognition intact. Head: Normocephalic and atraumatic. ENT: No evidence of nasal or oral mucosal lesions. Mucous membranes are moist. Eyes: Pupils equal round reactive to light. Neck: Supple without adenopathy and full range of motion. Abdomen: Soft and nondistended. No organomegaly. Bowel sounds active. Back/spine: Patient able to logroll towards his left side with ease without obvious discomfort. Patient is nontender over the midline. No focal facet or SI joint tenderness. Patient has generalized tenderness of the lumbosacral region which is nonfocal. No evidence of paravertebral, quadratus lumborum or gluteal muscular spasm. No definable myoneural trigger points. Lower extremities: SLR negative bilaterally. Strength testing 5/5 on the right with dorsiflexion, plantarflexion, EHL testing and hip flexion/extension. Strength testing 4+/5 on the left throughout without focal deficit-questionable effort. No visible abnormalities affecting the knee or ankle joint. He does appear to have some mild ecchymosis over the medial joint line on the left. Knee is nontender with flexion and extension. Hips are nontender with internal and external rotation bilaterally. Sensation was diminished to dull on the left in a nondermatomal pattern when compared to the right. Neurologic: Cranial nerves grossly intact. Ambulatory function not witnessed. Results ([facility]) Diagnostic Review MRI Findings: [facility], [place] [phone] Magnetic Resonance Report Patient:TREVOR SCHNEIDER Admit Date:09/16/21 MR#:[id number] Address1:[address] Acct ID:[id number] Address2: Date:[address] [facility] Zip:[place] [address] Age:60 Location:ED Sex:M Room/Bed: Att Phy: Diagnosis:LEG PAIN Jessica Phy:Analia Muniz MD Service Date:09/16/21 Fam Phy: Interpreting Phy:Florencio GuzmanAdmit Phy: Ordering Phy:Romario Toledo MD cc: ~ MR lumbar spine wo con CLINICAL HISTORY: 60 years-old Male with pain with left leg weak eval for spinal cord injur. Acute low back pain with bilateral lower extremity weakness COMPARISON: CT lumbar spine 09/13/2021 TECHNIQUE: Multiplanar, multi sequence MRI of the lumbar spine was performed without intravenous contrast. FINDINGS: The program director scouting localizer images demonstrate no gross extraspinal abnormality. Urinary bladder trabeculation with small diverticula suggestive of chronic bladder outlet obstruction. The study is motion degraded. There is no abdominal aortic aneurysm or lymphadenopathy identified on this study. The conus medullaris terminates at the T12-L1 level. Signal within the imaged thoracic spinal cord and cauda equina is within normal limits. No acute fracture, subluxation, or endplate erosion. Mild Modic type I endplate degeneration at L4-L5. T12-L1: Mild spondylitic spurring and facet arthrosis. No central canal or neural foraminal stenosis. L1-L2: Mild spondylitic spurring and facet arthrosis. No central canal or neural foraminal stenosis. L2-L3: Mild spondylitic spurring and facet arthrosis. No central canal or neural foraminal stenosis. L3-L4: Mild spondylitic spurring and facet arthrosis with tiny posterior annular disc bulge and ligamentum flavum thickening. Trace facet effusions. Flattening of the ventral thecal sac without significant central canal stenosis. Mild to moderate right with mild left neural foraminal narrowing. L4-L5: Moderate to severe intervertebral disc space narrowing with spondylitic spurring and circumferential disc osteophyte complex. Ligamentum flavum thickening with mild to moderate facet arthrosis. Flattening of the ventral thecal sac without significant central canal stenosis. Mild to moderate narrowing of the right lateral recess. Mild to moderate bilateral foraminal stenosis. L5-S1: Mild to moderate facet arthrosis with mild spondylitic spurring and tiny posterior annular disc bulge. Trace facet effusions. The central canal is patent. Mild bilateral neural foraminal narrowing. IMPRESSION: 1. Motion degraded exam. No acute fracture or subluxation. 2. Moderate to severe intervertebral disc space narrowing at L4-L5 with Modic type I endplate degeneration. There is mild to moderate bilateral foraminal s tenosis at this interspace. 3. Additional neural foraminal narrowing L3-L4 and L5-S1 as above. 4. No significant central canal stenosis. ACT 112: Negative or not required by law. The above report was generated using voice recognition software. It may contain grammatical, syntax or spelling errors. Electronically signed by: Florencio Guzman M.D. 09/16/2021 3:54 PM Dictated:09/16/21 1547 Transcribed: 09/16/21 1547
[2021-09-18 09:13] LABS: Hematocrit (blood only) 31.9 % (42-52); Hemoglobin 10.3 g/dL (14.0-18.0); Mean Corpuscular Hemoglobin 30.2 pg (25-34); Mean Corpuscular Hgb Conc 32.3 g/dL (32-36); Mean Corpuscular Volume 93.5 fL (80-100); Mean Platelet Volume 9.3 fL (7.4-10.4); Platelet Count 253 K/uL (130-400); RDW Coefficient of Variation 16.6 % (11.5-14.5); RDW Standard Deviation 56.9 fL (36.4-46.3); Red Blood Count 3.41 M/uL (4.7-6.1); White Blood Count 7.58 K/uL (4.8-10.8)
[2021-09-18 09:26] LABS: BUN Creatinine Ratio 18.6 (10-20); Creatinine Clr Calc Pharmacy 18.5 ml/min; Est GFR (African American) 14.2 ml/min; Est GFR (Non-African American) 12.3 ml/min
--- NOTE | 2021-09-18 10:09 | Nephrology Progress Note ---
Date of Service September 18, 2021 Assessment & Plan (1) End stage renal disease on dialysis: (2) Chronic anemia: (3) Lumbar radiculopathy: (4) Primary hypertension: Plan: ESRD on hemodialysis since July 2020, on Saturday, Saturday, Saturday at [facility]. Admitted to the hospital with lower back pain and frequent falls. Missed dialysis on Saturday due to back pain and last dialysis was last Saturday. However, he continues to make urine and has been having decent urine output. Blood pressure, volume status acceptable, no respiratory distress. Electrolyte acceptable. -- Although today's his regular dialysis day however, blood pressure, electrolyte, volume status acceptable. No uremic symptoms. Considering dialysis staffing shortage today, will hold off on dialysis today and plan for dialysis tomorrow. -- will give Epogen with dialysis tomorrow. -- waiting on pain management evaluation, may need orthopedic evaluation for moderate to severe L4- L5 narrowing. Will follow. Admission and Anticipated Discharge Date Admission Date: September 17, 2021 Subjective Regan was seen and evaluated this morning. He seems comfortable lying in bed however continues to complain of pain in back and left leg. Appetite has been decent, has normal p.o. intake. No shortness of breath or chest pain. Has been voiding decent amount of urine. Electrolyte acceptable despite not having dialysis since last Saturday. Blood pressure acceptable. Review of Systems Review of Systems: Detail ROS was otherwise unremarkable. Physical Exam Constitutional: WD/WN, vitals as above no acute distress Eyes: + anicteric sclerae Neck: normal visual inspection Respiratory: no respiratory distress and no cough Auscultation: lungs clear to auscultation bilaterally Cardiovascular: Rate/Rhythm: regular rate and regular rhythm Extremities: + calf tenderness (left calf tender, bigger than right.); no edema Skin: no rashes Neurologic: no focal motor deficits Psychiatric: Orientation: alert and oriented x 3 Affect: euthymic affect Results & Data ([facility]) Vital Signs (Past 12 Hours) Vital Signs Temp Pulse Resp BP Pulse Ox 09/18/21 07:23 36.3 C L 70 16 110/64 94 PG Care Time/CCT Total # of Minutes Spent Total Time Spent with Patient: Total time spent is greater than 50% in coordination of care (as documented) at patient's floor/unit and/or counseling patient: Coding Level of Care Code 56434 Subseq Hosp Care Lvl 3 Diagnoses End stage renal disease on dialysis N18.6; Z99.2 Chronic anemia D64.9 Lumbar radiculopathy M54.16 Primary hypertension I10
--- NOTE | 2021-09-18 15:37 | Ultrasound Report ---
US venous doppler LE LT CLINICAL HISTORY: Concern for LLE DVT TECHNIQUE: Left lower extremity real-time compression venous ultrasound with Color Doppler imaging. U tilizing real-time ultrasonic imaging multiple real time high-resolution ultrasonic images with compr ession and noncompression maneuvers of the deep venous system in addition to color doppler imaging we re performed from the common femoral vein through the proximal calf veins. COMPARISON: None available at the time of this dictation. FINDINGS: Currently there is normal compressibility of the deep venous system from the common femoral vein thro ugh the proximal calf veins. No superficial venous thrombosis is identified. Impression: No evidence of deep venous thrombus. ACT 112: Negative or not required by law. Electronically signed by: Stephon Quiros M.D. 09/18/2021 3:36 PM
--- NOTE | 2021-09-18 16:44 | Discharge Summary ---
Date of Service September 18, 2021 Admission HPI Per Admitting Provider 60yo M w/ hx of cardiac arrest after hemorrhagic shock who presents with intractable back pain. The patient just arrived at [facility] for some physical therapy as he had been having trouble at home. He reports he was walking around the facility without any problem, doing 1,000 steps at a time. However, he had two falls over a door sill and then fell out of bed 2 times in the last 3 days. He now has lower back pain that radiates down his left leg. He feels the leg is weak and he cannot support it. In the ER, the pain was recalcitrant to multiple IV doses of pain medication, and the patient felt he needed to come into the hospital for further pain management. Principal Diagnosis Lower back pain and left radicular pain Discharge Exam Constitutional WD/WN, vitals as above Eyes EOM intact bilaterally; no conjunctival abnormality ENMT external ear and nose normal, oropharynx normal Neck trachea midline, no thyromegaly normal visual inspection Respiratory normal respiratory effort, lungs clear to auscultation no respiratory distress Cardiovascular RRR, no murmur, no edema Gastrointestinal (Abdomen) Inspection/Auscultation: abdomen normal to inspection; abdomen not distended Musculoskeletal Spine: + lumbar spinal tenderness (Midline, mild, partially distractable.) Skin no rashes, warm and dry Neurologic moves all extremities and awake Psychiatric Orientation: alert, oriented to person and cooperative Discharge Data Allergies Allergy/AdvReac Type Severity Reaction Status Date / Time No Known Allergies Allergy Verified 09/16/21 17:03 Consultations 09/16/21 16:57 ED Decision to Admit Stat 09/16/21 20:08 Consult Nephrology Routine 09/17/21 11:34 Consult Pain Management Routine Ordered Studies 09/16/21 14:09 MR lumbar spine wo con Stat 09/18/21 11:26 US venous doppler LE Urgent Hospital Course (1) Low back pain radiating to left leg: Acute on chronic lower back pain. MRI lumbar spine showed "Moderate to severe intervertebral disc space narrowing at L4-L5" but no central canal stenosis. - Pain management with scheduled acetaminophen, lidocaine patch, heat pad, and ketorolac PRN - Continue home gabapentin daily (no higher due to ESRD) - PT/OT - Consulted Pain Management - Seen on 09/18 without any recs. - Given hx of abuse, I avoided opioids. I explicitly told the patient this during my interview. His pain improved without any appreciable change in his medical regimen. I switched ibuprofen for ketorolac IV and made his acetaminophen standing for 2 days. The patient's pain was very distractible. On my arrival, he was sleeping. I gently awoke him, and we discussed his medical issues for several minutes with the patient in no distress. On asking about his back, he began to wince and say "Ow." then sat up reporting severe back pain. He flinched and said "Ow" to all forms of touch, including light brushing of his lumbar spine. While I am not doubting the patient's experience of pain, I am not sure that aggressively adding medications to treat his pain would benefit. His pain seems at least somewhat centrally-mediated. As such, I added venlafaxine ER 37.5 mg PO daily to his regimen in hopes it might help. He could see Dr. Byers as an outpatient (no coverage this entire week in the hospital), but I do not think he has any acute surgical needs and would likely be a poor surgical candidate. (2) End stage renal disease on dialysis: Due to ROME during his cardiac arrest. He is unclear who is usual nephr ologist is. Reports he did miss yesterday's HD session due to pain. No acute dialysis needs at this time. - Consulted nephrology - Discussed today. No acute HD needs. Could not be fit in today due to staffing issues. - Will go to home HD center tomorrow (one day early) for HD session. (3) Afib: In setting of his cardiac arrest. PCP notes that he has not had any more known episodes. - Continue home apixaban - Not on any rate control at present (4) Psoriasis: Notable patches on extensor surfaces. Reports he does not presently see any hall clerk for this. - Made triamcinolone cream PRN to standing BID - Even on 2 days of therapy, his lesions looked improved. I would use the triamcinolone cream at least 2 weeks for improvement. Should see a hall clerk as outpatient. (5) Polysubstance abuse: Cardiac arrest in 07/2020 in the setting of a duodenal ulcer while under influence of cocaine & opioids. - Avoid narcotic medications (6) DVT prophylaxis: On Eliquis for afib Total Time Total Time Spent Total Time Spent (In Minutes): 35 Discharge Plan Discharge Items Patient Disposition: Personal Nursing Home Reason For Visit: LEG PAIN Discharge Diagnosis: Left leg pain Condition on Discharge: Good Activity: Resume your previous activity Non-emergency contact: Primary Care Provider Call non-emergency contact if: your symptoms worsen Follow-up/Referrals: Analia Muniz MD [Primary Care Provider] - 10/09/21 10:30 am (HOSPITAL F/U VISIT WITH PETRA MCKEON PA-C ) Louis Byers DO [Surgeon] - (Please see Dr. Byers if your back pain does not improve.) Diet: Dialysis Renal Addtl Attending Provider Instructions: Mr. Schneider was admitted to the hospital with lower back pain and left leg pain which he said made it impossible for him to walk. He had extensive testing including a pelvis CT scan, x-rays of his knee and ankle, an MRI of his lumbar spine, and an ultrasound of his left leg. All testing was negative for acute fractures or acute issues. There was no blood clot in the left leg. Over the course of 2 days, the leg pain improved, and he was walking to and from the nurses station without difficulty by discharge. Given the concern for chronic narcotic use, Pain Management was consulted. They recommended no injection interventions due to his kidney issues. We could not have orthopedic spine see him in the hospital because there was no coverage during his stay, but I have put in the referral number should that be needed. However, his lumbar spinal MRI did not show any spinal cord compression. We do recommend starting venlafaxine ER 37.5 mg by mouth daily to help with neuropathic pain. For his psoriasis, we did use your cream twice a day while you were here. Within 2 days, it seemed like many areas were improving. We would recommend continuing its use twice a day for at least the next few weeks and following up with a hall clerk. Dr. Kinney (the kidney doctor) scheduled you for dialysis tomorrow at 9:25am at your usual center. Since you missed Saturday, she does not want you to wait until Saturday. Jemma was made aware of this and will get you there tomorrow. Pending Studies at Discharge: No Stand-Alone Forms: [facility] ArchiveSocial, Smoking Cessation Skilled Items Patient informed of condition?: Yes DNR: No Discharge Level of Care: Other Communicable Disease: No Discharge Prognosis: Stable Lines: None Urinary Catheter: No Medications and DC Order Prescriptions: New venlafaxine 37.5 mg capsule,extended release 24hr 37.5 mg PO DAILY Qty: 30 RF: 0 Continued Eliquis 2.5 mg tablet 2.5 mg PO BID Qty: 180 RF: 3 ferrous sulfate [iron] 325 mg (65 mg iron) tablet 325 mg PO DAILY Qty: 90 RF: 3 gabapentin 300 mg capsule 300 mg PO DAILY Qty: 90 RF: 3 melatonin 3 mg tablet 6 mg PO HS PRN (Reason: sleep) Qty: 30 RF: 3 midodrine 5 mg tablet 5 mg PO TID Qty: 270 RF: 3 pantoprazole 40 mg tablet,delayed release (DR/EC) 40 mg PO DAILY Qty: 90 RF: 3 ibuprofen 200 mg Tablet 400 - 600 mg PO DIRECTED PRN (Reason: PAIN/FEVER) RF: 0 triamcinolone acetonide 0.1 % lotion 1 applic TOPICAL DIRECTED PRN (Reason: Skin Irritation) RF: 0 acetaminophen [Tylenol Extra Strength] 500 mg tablet 1,000 mg PO DIRECTED PRN (Reason: PAIN/FEVER) RF: 0 lidocaine [Aspercreme (lidocaine HCl)] 4 % adhesive patch,medicated 1 patch topical DAILY Qty: 30 RF: 0 Discharge Orders: Discharge Order (Routine); Ordered 09/18/21 Ordered By: Moris Treviño Admission Data Admit Date/Time: 09/17/21 11:34 Attending Provider: Moris Treviño Admit Provider: Moris Treviño Primary Care Provider: Analia Muniz Other Providers: Moris Treviño ; Ashwini Kinney Upendra Other Interventions: Discharge Summary Assessment (RN) Last Done: 09/18/21 15:58 Coding Level of Care Code D/C DAY MANAGEMENT >30 MINS Diagnoses Low back pain radiating to left leg M54.50; M79.605 End stage renal disease on dialysis N18.6; Z99.2 Afib I48.91 Psoriasis L40.9 Polysubstance abuse F19.10 DVT prophylaxis Z29.9
== END 2021-09-18 16:57 | disposition home or self-care (01) ==
LOC: 3N 13:13 → ED 13:13 → 3N 19:48